=== PATIENT | male | born 1975 | race Asian ===

== ENCOUNTER 2019-01-17 07:15 | Emergency (ER) | payer SELFPAY ==
--- NOTE | 2019-01-17 07:28 | EDPHY ---
H & P Time Seen by Provider: 01/17/19 07:28 HPI/ROS: Chief complaint. Abdominal pain HPI. Patient is 43-year-old male presents emergency department with left side abdominal pain and left flank pain that began at 4:00 a.m.. Some urinary urgency and burning with urination. Nausea of an almost vomiting. No diarrhea. No fever. Patient tells me he cannot find a comfortable position. He has had similar symptoms previously but never come to the physician. He believes he has had kidney stones before as a cause. No chest pain or shortness of breath. Patient tells me at times that the pain radiates to the groin and left testicle area ROS 10 systems were reviewed and negative with the exception of the elements mentioned in the history of present illness Past Medical/Surgical History: Healthy Social History: Single, nonsmoker, no alcohol Smoking Status: Never smoked Physical Exam: General Appearance: Alert well-developed male moderate distress vital signs significant for blood pressure 152/105 Eyes: Pupils equal and round no pallor or injection. ENT, Mouth: Mucous membranes are moist. Respiratory: There are no retractions, lungs are clear to auscultation. Cardiovascular: Regular rate and rhythm. Gastrointestinal: Abdomen is soft with left mid abdominal tenderness and left flank tenderness. Not particularly worse with palpation. Normal bowel sounds. No masses Neurological: Awake and alert, sensory and motor exams grossly normal. Skin: Warm and dry, no rashes. Musculoskeletal: Neck is supple nontender. Extremities symmetrical, full range of motion. Psychiatric: Patient is oriented X 3, there is no agitation. Constitutional: Initial Vital Signs Temperature (C) 36.4 C 01/17/19 07:17 Heart Rate 61 01/17/19 07:17 Respiratory Rate 18 01/17/19 07:17 Blood Pressure 152/105 H 01/17/19 07:17 O2 Sat (%) 98 01/17/19 07:17 O2 Delivery Mode Nasal Cannula O2 (L/minute) 2 Allergies/Adverse Reactions: No Known Allergies Allergy (Unverified 01/17/19 07:16) Home Medications: Medication Instructions Recorded Ondansetron Odt [Zofran Odt] 4 mg PO Q4PRN PRN #4 tab 01/17/19 oxyCODONE/APAP 5/325 [Percocet 1 tab PO Q4-6PRN PRN #7 tab 01/17/19 5/325] Medical Decision Making - Diagnostics Imaging Results: Imaging Impressions Abdomen/Pelvis CT 01/17/19 07:36 Impression: There is punctate left nephrolithiasis, as well as mild left hydroureteronephrosis secondary to a 3 x 4 mm stone noted within the posterior portion of the urinary bladder near the ureterovesical junction. Attention: This CT examination is specifically designed to evaluate patients who are clinically suspected of having acute obstructive uropathy. This examination does not use radiographic contrast, and as such, provides only a limited evaluation of the abdomen, pelvis, and retroperitoneum. If there is further clinical suspicion for pathological conditions other than obstructive uropathy, a complete CT evaluation of the abdomen and pelvis utilizing intravenous, oral, and rectal contrast should be considered. Findings were discussed with GERMANIA DE OLIVEIRA MD at 8:28 AM, on 01/17/2019. Noncontrast CT abdomen pelvis shows a 3 x 4 mm stone at the left UVJ with mild upstream hydronephrosis Procedures: IV normal saline. Dilaudid, Toradol, Zofran ED Course/Re-evaluation: Re-evaluation 8:15 a.m. Patient is much more comfortable after medication Flomax orally Recheck again at 8:55 a.m. Patient is comfortable Patient and I discussed imaging and lab results. We discussed treatment plan including criteria for return importance of follow-up and further evaluation. He expresses understanding and agreement Differential Diagnosis: I considered kidney stone, urinary tract infection, pyelonephritis - Data Points Laboratory Results: Laboratory Results 01/17/19 07:30 01/17/19 07:30 01/17/19 01/17/19 01/17/19 07:33 07:30 07:30 WBC 7.95 10^3/uL 10^3/uL (3.80-9.50) RBC 5.68 10^6/uL 10^6/uL (4.40-6.38) Hgb 17.4 g/dL g/dL (13.7-17.5) Hct 48.5 % % (40.0-51.0) MCV 85.4 fL fL (81.5-99.8) MCH 30.6 pg pg (27.9-34.1) MCHC 35.9 g/dL g/dL (32.4-36.7) RDW 12.3 % % (11.5-15.2) Plt Count 206 10^3/uL 10^3/uL (150-400) MPV 9.6 fL fL (8.7-11.7) Neut % (Auto) 60.0 % % (39.3-74.2) Lymph % (Auto) 31.4 % % (15.0-45.0) [place] % (Auto) 6.4 % % (4.5-13.0) Eos % (Auto) 0.9 % % (0.6-7.6) Baso % (Auto) 0.5 % % (0.3-1.7) Nucleat RBC Rel Count 0.0 % % (0.0-0.2) Absolute Neuts (auto) 4.77 10^3/uL 10^3/uL (1.70-6.50) Absolute Lymphs (auto) 2.50 10^3/uL 10^3/uL (1.00-3.00) Absolute Monos (auto) 0.51 10^3/uL 10^3/uL (0.30-0.80) Absolute Eos (auto) 0.07 10^3/uL 10^3/uL (0.03-0.40) Absolute Basos (auto) 0.04 10^3/uL 10^3/uL (0.02-0.10) Absolute Nucleated RBC 0.00 10^3/uL 10^3/uL (0-0.01) Immature Gran % 0.8 % % (0.0-1.1) Immature Gran # 0.06 10^3/uL 10^3/uL (0.00-0.10) Sodium 138 mEq/L mEq/L (135-145) Potassium 3.8 mEq/L mEq/L (3.5-5.2) Chloride 109 mEq/L mEq/L (97-110) Carbon Dioxide 18 mEq/l L mEq/l (22-31) Anion Gap 11 mEq/L mEq/L (6-14) BUN 13 mg/dL mg/dL (7-23) Creatinine 0.9 mg/dL mg/dL (0.7-1.3) Estimated GFR > 60 Glucose 131 mg/dL H mg/dL (70-100) Calcium 9.3 mg/dL mg/dL (8.5-10.4) Urine Color YELLOW Urine Appearance CLEAR Urine pH 6.0 (5.0-7.5) Ur Specific [place] 1.016 (1.002-1.030) Urine Protein NEGATIVE (NEGATIVE) Urine Ketones TRACE H (NEGATIVE) Urine Blood 3+ H (NEGATIVE) Urine Nitrate NEGATIVE (NEGATIVE) Urine Bilirubin NEGATIVE (NEGATIVE) Urine Urobilinogen NEGATIVE EU EU (0.2-1.0) Ur Leukocyte Esterase NEGATIVE (NEGATIVE) Urine RBC 50-182 /hpf H /hpf (0-3) Urine WBC 1-3 /hpf /hpf (0-3) Ur Epithelial Cells NONE SEEN /lpf /lpf (NONE-1+) Urine Mucus TRACE /lpf /lpf (NONE-1+) Urine Glucose 1+ H (NEGATIVE) Medications Given: Discontinued Medications Hydromorphone HCl (Dilaudid) 0.5 mg IVP EDNOW ONE Stop: 01/17/19 07:36 Last Admin: 01/17/19 07:46 Dose: 0.5 mg Sodium Chloride (Ns) 1,000 mls @ 0 mls/hr IV EDNOW ONE; Wide Open PRN Reason: Protocol Stop: 01/17/19 07:36 Last Admin: 01/17/19 07:47 Dose: 1,000 mls Ketorolac Tromethamine (Toradol) 30 mg IVP EDNOW ONE Stop: 01/17/19 07:36 Last Admin: 01/17/19 07:46 Dose: 30 mg Ondansetron HCl (Zofran) 4 mg IVP EDNOW ONE Stop: 01/17/19 07:36 Last Admin: 01/17/19 07:46 Dose: 4 mg Departure - Departure Disposition: Home, Routine, Self-Care Clinical Impression: Renal colic on left side Condition: Good Instructions: Kidney Stones (ED) Additional Instructions: Drink plenty of fluids and stay hydrated Strain all urine next 24 hr and save stone for nephrologists Ibuprofen 600 mg every 6 hr for discomfort. Percocet in addition if necessary. Zofran as needed for nausea Return for worsening symptoms Referrals: NONE *PRIMARY CARE P,. [Primary Care Provider] - As per Instructions Steve Oliveros DO [Doctor of Osteopathy] - 2-3 days, call for appt. Prescriptions: Ondansetron Odt [Zofran Odt] 4 mg PO Q4PRN PRN #4 tab PRN Reason: Nausea/Vomiting, Use 1st oxyCODONE/APAP 5/325 [Percocet 5/325] 1 tab PO Q4-6PRN PRN #7 tab PRN Reason: Pain, Moderate
[2019-01-17] MEDS ORDERED: NS 1,000 ML IV ONE (07:35)
[2019-01-17] MEDS ORDERED: KETOROLAC 30 MG/1 ML SDV IVP ONE (07:35)
[2019-01-17] MEDS ORDERED: ONDANSETRON 4 MG/2 ML VIAL IVP ONE (07:35)
[2019-01-17] MEDS ORDERED: HYDROmorphONE/DILAUDID 2 MG/ML INJ IVP ONE (07:35)
[2019-01-17 07:57] LABS: PLATELET COUNT 206 10^3/uL (150-400)
[2019-01-17] MEDS ORDERED: TAMSULOSIN HCL 0.4 MG CAP PO ONE (09:00)
[2019-01-17 09:56] VITALS: BP 118/75
== END 2019-01-17 10:07 | disposition home or self-care (01) ==
DX: N23 Unspecified renal colic (principal)
CPT/HCPCS: 96374; J1170; J1885; J2405